=== PATIENT | male | born 1930 | race Caucasian/White ===

== ENCOUNTER 2016-12-27 13:19 | Outpatient (CLI) ==
[2016-12-27 13:48] LABS: HEMATOCRIT 42.7 % (42.0-52.0); HEMOGLOBIN 14.1 g/dl (14.0-18.0); MEAN CORPUSCULAR HEMOGLOBIN 30.5 pg (27.0-31.0); MEAN CORPUSCULAR VOLUME 92.2 fl (80.0-94.0); RED BLOOD COUNT 4.63 10^6/ul (4.70-6.10); WHITE BLOOD COUNT 8.64 K/ul (4.2-10.2)
[2016-12-27 14:12] LABS: ALBUMIN 3.9 g/dL (3.4-5.0); ALBUMIN/GLOBULIN RATIO 1.39; ANION GAP 13.2; BILIRUBIN,TOTAL 0.64 mg/dL (0.00-1.20); BUN/CREATININE RATIO 16.26; CALCIUM 9.5 mg/dL (8.2-10.2); CREATININE 1.66 mg/dL (0.60-1.10); POTASSIUM 4.2 mmol/L (3.5-5.1); TOTAL PROTEIN 6.7 g/dL (5.8-8.1)
[2016-12-28 08:17] LABS: URINE CREATININE 111.1 mg/dL (Not Estab.)
[2016-12-28 09:55] LABS: URINE MALB/CR RATIO 8.8 mg/g creat (0.0-30.0)
== END 2016-12-27 13:20 | disposition home or self-care (01) ==
LOC: LAB 13:19
PROVIDERS: ATTEND Internal Medicine Nephrology
DX: N18.3 Chronic kidney disease, stage 3 (moderate) (principal)
CPT/HCPCS: 36415; 80053; 82043; 85027

== ENCOUNTER 2017-07-03 11:43 | Outpatient (CLI) ==
[2017-07-03 12:06] LABS: HEMATOCRIT 44.1 % (42.0-52.0); HEMOGLOBIN 14.6 g/dl (14.0-18.0); MEAN CORPUSCULAR HEMOGLOBIN 30.3 pg (27.0-31.0); MEAN CORPUSCULAR HGB CONC 33.1 (31.8-35.4); MEAN CORPUSCULAR VOLUME 91.5 fl (80.0-94.0); RED BLOOD COUNT 4.82 10^6/ul (4.70-6.10); WHITE BLOOD COUNT 9.81 K/ul (4.2-10.2)
[2017-07-03 12:28] LABS: ANION GAP 16.3; BUN/CREATININE RATIO 16.44; CALCIUM 9.6 mg/dL (8.2-10.2); CREATININE 1.52 mg/dL (0.60-1.10); POTASSIUM 4.3 mmol/L (3.5-5.1)
[2017-07-04 08:18] LABS: URINE CREATININE 53.7 mg/dL (Not Estab.)
[2017-07-04 08:33] LABS: URINE MALB/CR RATIO 30.7 mg/g creat (0.0-30.0)
== END 2017-07-03 11:44 | disposition home or self-care (01) ==
LOC: LAB 11:43
PROVIDERS: ATTEND Internal Medicine Nephrology
DX: N18.3 Chronic kidney disease, stage 3 (moderate) (principal)
CPT/HCPCS: 36415; 80048; 82043; 85027

== ENCOUNTER 2018-01-03 12:05 | Outpatient (CLI) ==
--- NOTE | 2018-01-03 13:25 | MRI ---
EXAM: MRI brain without IV contrast. DATE: 01/03/2018. HISTORY: Memory loss. TECHNIQUE: Sagittal T1W, axial T2W, axial FLAIR, axial T1W, axial DWI, and coronal T2W GRE sequences of the brain were obtained using 1.2 Anne magnet. No IV contrast. COMPARISON: None. FINDINGS: The ventricles, cisterns, and subarachnoid spaces are commensurately enlarged due to invol utional change. No midline shift, mass effect or abnormal extra-axial fluid collection is apparent. No acute infarct, hemorrhage or neoplasm is identified. Narrow/small confluent rim of T2W/FLAIR hyp erintensity is observed in the white matter abutting each lateral ventricle. Several punctate areas of T2W/FLAIR hyperintensity are also demonstrated in the cecil. A small number of 2-5 mm, T2W/FLAIR b right foci are scattered within the crandall radiata, centrum semiovale and subcortical white matter bi laterally. The maravilla - white matter differentiation is normal. A T2W GRE black, 6.5 mm focus in the region of the pineal gland is consistent with benign calcification. The 7th/8th cranial nerve comple xes, cerebellopontine angles, brainstem, and visible cervical spinal cord are normal. There is no ce rebellar tonsillar ectopia. The pituitary gland is normal in size and signal. Corpus callosum revea ls a focal notch like thinning in the posterior third of the body. Vertebrobasilar arterial system i s tortuous. Flow voids are present in the major intracranial arteries and in the dural venous sinuse s. No aneurysm, AVM or dural venous sinus thrombosis is apparent. Appearance of the lens of each ey e suggests prior cataract surgery. Divergent eye gaze is noted. No other orbit abnormality is ident ified. The mastoid air cells are unremarkable. There is no acute sinusitis. No neck mass or lympha denopathy is detected. No calvarial neoplasm or acute fracture is evident. Soft tissue prominence n ear the posterior/lateral margins of the odontoid is likely due to arthritis. IMPRESSIONS: 1. No acute infarct, hemorrhage, neoplasm or hydrocephalus. 2. 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 3. Mild/moderate cerebral and minor cerebellar atrophy. 4. Divergent eye gaze. Correlate with physical exam. This can be seen when the patient slips durin g the time of examination
--- NOTE | 2018-01-03 13:33 | US ---
EXAM: Ultrasound bilateral carotid duplex. HISTORY: Memory loss. COMPARISON: None available. TECHNIQUE: Multiple maravilla scale and color Doppler images were obtained. FINDINGS: Please note that estimates of internal carotid artery stenoses are based upon NASCET crite martin. Right carotid: No significant plaquing identified. Peak systolic velocity measurement in the right internal carotid artery is 0.5 meters per second. Right internal to common carotid artery peak systo lic velocity ratio measures 0.8. End diastolic velocity measurement in the right internal carotid ar judson is 0.1 meters per second. Flow in the right vertebral artery is antegrade. Left carotid: No significant plaquing identified. Peak systolic velocity measurement in the left in ternal carotid artery is 0.7 meters per second. Left internal to common carotid artery peak systolic velocity ratio measures 1.3. End diastolic velocity measurement in the left internal carotid artery measures 0.2 meters per second. Flow in the left vertebral artery is antegrade. IMPRESSION: 1. No evidence for 50% or greater stenosis in the right or left internal carotid artery. 2. Antegrade flow in both vertebral arteries.
== END 2018-01-03 12:06 | disposition home or self-care (01) ==
LOC: RAD 12:05
PROVIDERS: ATTEND Family Medicine
DX: R09.89 Other specified symptoms and signs involving the circulatory and respiratory systems (principal); I79.8 Other disorders of arteries, arterioles and capillaries in diseases classified elsewhere; R41.3 Other amnesia

== ENCOUNTER 2018-02-01 09:31 | Outpatient (CLI) | END 2018-02-01 09:32 | disposition home or self-care (01) | LOC: LAB 09:31 | PROVIDERS: ATTEND Internal Medicine Nephrology | DX: N18.3 Chronic kidney disease, stage 3 (moderate) (principal) | CPT/HCPCS: 36415; 80053; 82043; 85027 ==

== ENCOUNTER 2018-05-23 11:13 | Outpatient (CLI) ==
--- NOTE | 2018-05-23 12:24 | MAMMO ---
EXAM: Digital screening mammogram with tomosynthesis HISTORY: Screening COMPARISON: 06/21/2016 FINDINGS: Digital MLO and CC views of the right and left breast were performed. Tomosynthesis was performed. Computer aided detection utilized. There are scattered fibroglandular densities. There is no evidence for mass, asymmetry, distortion, or suspicious calcifications in either breast. IMPRESSION: 1. No evidence of malignancy in the right or left breast. 2. Annual screening mammogram is recommended in one year. BIRADS category 1, negative examination
--- NOTE | 2018-05-23 19:39 | US ---
EXAM: Right breast ultrasound HISTORY: Incomplete right breast mammogram COMPARISON: Mammogram same day FINDINGS: Ultrasound right breast was performed. At the 12 o'clock position 3 cm from the ankle, th ere is a oil cyst measuring 8 x 6 x 9 mm, corresponding to the oil cyst on mammogram. This finding i s benign. At the 1 o'clock position 5 cm from the nipple, there is a sebaceous cyst with posterior t hrough transmission associated with the dermis, measuring 7 x 5 x 9 mm. This finding is benign. IMPRESSION: Right breast oil cyst and right breast sebaceous cyst. These findings are benign. BIRADS category II, benign
== END 2018-05-23 11:14 | disposition home or self-care (01) ==
LOC: RAD 11:13
PROVIDERS: ATTEND Family Medicine
DX: D49.3 Neoplasm of unspecified behavior of breast (principal); N63.0 Unspecified lump in unspecified breast

== ENCOUNTER 2018-08-07 12:49 | Outpatient (CLI) | END 2018-08-07 12:50 | disposition home or self-care (01) | LOC: LAB 12:49 | PROVIDERS: ATTEND Internal Medicine Nephrology | DX: N18.3 Chronic kidney disease, stage 3 (moderate) (principal) | CPT/HCPCS: 36415; 80053; 82043; 85027 ==

== ENCOUNTER 2019-02-04 10:35 | Outpatient (CLI) | END 2019-02-04 10:36 | disposition home or self-care (01) | LOC: LAB 10:35 | PROVIDERS: ATTEND Internal Medicine Nephrology | DX: N18.3 Chronic kidney disease, stage 3 (moderate) (principal) | CPT/HCPCS: 36415; 80053; 82043; 83970; 85027 ==

== ENCOUNTER 2019-03-25 09:58 | Outpatient (CLI) ==
--- NOTE | 2019-03-25 11:20 | CT ---
EXAM: CT of the chest without contrast History: Pneumonia Comparison: Chest radiograph 11/03/2010 Technique: Multiplanar CT images through the thorax were obtained without the administration of IV c ontrast Findings: Heart size is upper limits of normal. Coronary calcifications. 4 cm aneurysm of the asce nding aorta. No axillary lymphadenopathy. No pathologically enlarged mediastinal or hilar lymph nod es. Diffuse bronchial wall thickening. Mild patchy ground-glass bilateral lung infiltrates. Subseg mental atelectasis is seen within the lower lungs. No change in the chronic scarring at the right co stophrenic angle. No pleural fluid and no pneumothorax. 9 mm ground-glass nodule within the right u pper lobe axial image number 17. Within the visualized upper abdomen, small cyst within the left hepatic lobe measuring 1.2 cm. The 0 .7 cm hypoattenuating lesion within the right hepatic lobe is too small to characterize accurately by CT but also likely represents a small cyst. Partially visualized bilateral renal cysts. Moderate s tool seen within the visualized colon. No acute osseous abnormalities. Impression: 1. Mild bilateral pneumonia. 2. 9 mm ground-glass nodule within the right upper lobe. Recommend follow-up chest CT in 6 months. 3. Stable chronic scarring at the right costophrenic angle. 4. Coronary artery disease. 5. 4 cm ascending aortic aneurysm
== END 2019-03-25 09:59 | disposition home or self-care (01) ==
LOC: RAD 09:58
PROVIDERS: ATTEND Family Medicine
DX: J18.9 Pneumonia, unspecified organism (principal)